=== PATIENT | male | born 2000 | race Caucasian/White ===

== ENCOUNTER → 2024-05-31 | Emergency (ER) | payer OTHER ==
[~2024-05-31] VITALS: Ht 167.6 cm; Wt 59.0 kg
[~2024-05-31] MED LIST: MECL-159 PO; MECLIZINE HCL 12.5 MG TABLET ONE
[2024-05-31 10:35] VITALS: BP 124/71; TEMP 98.7; O2SAT 100
[2024-05-31] MEDS: IV NS 0.9% 1,000 ML BAG IV ONE (10:57)
[2024-05-31 10:58] LABS: BASOPHILS % (AUTO) 0.6 % (0.0-2.0); EOSINOPHILS % (AUTO) 0.3 % (0.0-6.0); HEMATOCRIT 45 % (39-51); HEMOGLOBIN 15.2 g/dL (13.5-17.5); LYMPHOCYTES # (AUTO) 0.9 K/uL (0.8-4.8); LYMPHOCYTES % (AUTO) 14.6 % (20.0-44.0); MEAN CORPUSCULAR HEMOGLOBIN 30 PG (26.0-33.0); MEAN CORPUSCULAR HGB CONC 34 g/dl (31.0-36.0); MEAN CORPUSCULAR VOLUME 88 fL (80-96); MONOCYTES # (AUTO) 0.4 K/uL (0.1-1.30); MONOCYTES % (AUTO) 6.5 % (2.0-12.0); NEUTROPHILS # (AUTO) 4.6 K/uL (1.8-8.9); PLATELET COUNT (AUTO) 227 K/uL (150-450); RED BLOOD CELL COUNT(AUTO) 5.09 MIL/uL (4.5-6.0); RED CELL DISTRIBUTION WIDTH 13.5 % (11.5-15.0); WHITE BLOOD COUNT (AUTO) 5.9 K/uL (4.3-11.0)
[2024-05-31] MEDS: MECLIZINE HCL 12.5 MG TABLET PO ONE (11:02)
[2024-05-31 11:05] LABS: CALCIUM, SERUM 9.1 mg/dL (8.5-10.1); CREATININE 0.9 mg/dL (0.6-1.3); POTASSIUM 4.1 mmol/L (3.5-5.1)
== END | disposition home or self-care (01) ==
LOC: ER 10:25
DX: R42 Dizziness and giddiness (principal); R20.2 Paresthesia of skin
CPT/HCPCS: 99285; 96360; 85025; 80048; 36415; J8597 ×2; J7030